=== PATIENT | male | born 1965 | race Caucasian/White ===

== ENCOUNTER 2020-10-14 18:57 | Emergency (ER) | payer OTHER ==
[2020-10-14 20:31] LABS: HEMOGLOBIN 12.4 gm/dl (14.0-17.5); RED BLOOD COUNT 4.43 M/UL (4.20-5.50); WHITE BLOOD COUNT 7.6 K/UL (4.5-11.0)
[2020-10-14 20:53] LABS: BUN/CREATININE RATIO 12 (0-10)
== END 2020-10-14 22:23 | disposition home or self-care (01) ==
LOC: ER1 18:57
PROVIDERS: Physician Assistant
DX: R19.7 Diarrhea, unspecified (principal); E78.5 Hyperlipidemia, unspecified; I10 Essential (primary) hypertension; F17.210 Nicotine dependence, cigarettes, uncomplicated
CPT/HCPCS: 80053; 81001; 83690; 85025; 99284

== ENCOUNTER 2021-05-02 12:40 | Emergency (ER) | payer MEDICARE | END 2021-05-02 19:11 | disposition home or self-care (01) | LOC: ER1 12:40 | PROVIDERS: Internal Medicine Gastroenterology | PROC: 0DC38ZZ Extirpation of Matter from Lower Esophagus, Via Natural or Artificial Opening Endoscopic (ICD-10-PCS; principal; 2021-05-02 17:11) | DX: T18.128A Food in esophagus causing other injury, initial encounter (principal); Z20.822 Contact with and (suspected) exposure to COVID-19; K22.2 Esophageal obstruction; K44.9 Diaphragmatic hernia without obstruction or gangrene; K22.70 Barrett's esophagus without dysplasia; I10 Essential (primary) hypertension; E78.5 Hyperlipidemia, unspecified; Z79.899 Other long term (current) drug therapy; Z85.01 Personal history of malignant neoplasm of esophagus; X58.XXXA Exposure to other specified factors, initial encounter | CPT/HCPCS: 71045; 96374; 96375; 99152; 99153; 99283; J1200; J1610; J2250; J2765; J3010; U0002 ==